=== PATIENT | male | born 1960 | race Caucasian/White ===

== ENCOUNTER → 2018-03-31 | Outpatient (CLI) | payer BC ==
--- NOTE | 2018-03-31 15:01 | KCIC ---
Left knee, 3 views, 03/31/2018: HISTORY: Knee pain No previous studies are available at this time for comparison purposes. There are multiple calcifications in the soft tissues along the anterior aspect of the tibial tuberosity. These are probably related calcific tendinitis and/or old trauma related to the patellar tendon insertion site. There is mild underlying chronic appearing bony deformity at this level. No acute fracture or dislocation is identified. There is mild posterior patellar spurring. No significant joint effusion is seen. 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 Electronically signed by: Josue Brothers MD (03/31/2018 2:58 PM) [facility]
== END | disposition home or self-care (01) ==
LOC: KCIC 13:49
PROVIDERS: ATTEND Nurse Practitioner Family
DX: M76.52 Patellar tendinitis, left knee (principal)
CPT/HCPCS: 73562